=== PATIENT | female | born 1990 | race American Indian/Alaskan Native ===

== ENCOUNTER 2019-01-04 23:28 | Emergency (ER) | payer OTHER ==
[2019-01-04 23:33] VITALS: BP 111/45
[2019-01-05 00:58] LABS: Bilirubin,Urine NEG (Negative); Blood,Urine SM (Negative); Color,Urine Amber (Yellow)
[2019-01-05 00:59] LABS: HCG Qualitative,Urine Negative (Negative)
[2019-01-05] MEDS ORDERED: TYLENOL PO ONE (02:11)
[2019-01-05] MEDS ORDERED: BACTRIM DS PO ONE (02:11)
[2019-01-05] MEDS ORDERED: PYRIDIUM PO ONE (02:11)
--- NOTE | 2019-01-05 02:58 | Emergency Department Report ---
ED Female HPI - General Chief complaint: Urogenital-Female Stated complaint: VAGINAL PAIN/POSS UTI Source: patient Mode of arrival: Ambulatory Limitations: No Limitations - History of Present Illness Initial comments: Patient is a nulliparous 28-year-old female with no past medical history presents to the ED with complaint of acute onset persistent dysuria, urinary frequency and urgency, low back pain and nausea for the last 3 days. Patient denies vaginal bleeding, vaginal discharge, abdominal pain, vomiting, dizziness, headache, fever and chills, chest pain, shortness of breath, or sore throat and cough and sore throat. MD Complaint: dysuria, other (low back pain) -: Sudden, days(s) (3) Location: suprapubic Radiation: non-radiating Severity: moderate Severity scale (0 -10): 5 Quality: sharp, burning, aching Consistency: constant Improves with: none Worsens with: urination Are you Now?: No Last Menstrual Period: 12/26/18 EDC: 10/02/19 Associated Symptoms: nausea/vomiting, loss of appetite, dysuria. denies: vaginal discharge, vaginal bleeding, abdominal pain, fever/chills, headaches, hematuria, rash, seizure, shortness of breath, syncope, weakness - Related Data Sexually active: Yes : 0 Para: 0 A: 0 Previous Rx's Medication Instructions Recorded Last Taken Type Fluconazole [Diflucan TAB] 150 mg PO ONCE #2 tablet 01/05/19 Unknown Rx Ibuprofen [Motrin] 600 mg PO Q8H PRN #20 tablet 01/05/19 Unknown Rx Ondansetron [Zofran Odt] 4 mg PO Q6HR PRN #15 tab.rapdis 01/05/19 Unknown Rx Phenazopyridine [Pyridium] 200 mg PO Q8H #21 tab 01/05/19 Unknown Rx Sulfamethoxazole/Trimethoprim 1 each PO Q12H #20 tablet 01/05/19 Unknown Rx [Bactrim DS TAB] Allergies Allergy/AdvReac Type Severity Reaction Status Date / Time No Known Allergies Allergy Verified 01/04/19 23:30 ED Review of Systems ROS: Stated complaint: VAGINAL PAIN/POSS UTI Other details as noted in HPI Constitutional: denies: chills, fever Eyes: denies: eye pain, eye discharge, vision change ENT: denies: ear pain, throat pain Respiratory: denies: cough, shortness of breath, wheezing Cardiovascular: denies: chest pain, palpitations Endocrine: no symptoms reported Gastrointestinal: nausea. denies: abdominal pain, diarrhea Genitourinary: urgency, dysuria, frequency. denies: discharge Musculoskeletal: back pain. denies: joint swelling, arthralgia Skin: denies: rash, lesions Neurological: denies: headache, weakness, paresthesias Psychiatric: denies: anxiety, depression Hematological/Lymphatic: denies: easy bleeding, easy bruising ED Past Medical Hx - Past Medical History Previous Medical History?: No - Surgical History Past Surgical History?: No - Social History Smoking Status: Never Smoker Substance Use Type: None - Medications Home Medications: Home Medications Medication Instructions Recorded Confirmed Last Taken Type Fluconazole [Diflucan TAB] 150 mg PO ONCE #2 tablet 01/05/19 Unknown Rx Ibuprofen [Motrin] 600 mg PO Q8H PRN #20 tablet 01/05/19 Unknown Rx Ondansetron [Zofran Odt] 4 mg PO Q6HR PRN #15 tab.rapdis 01/05/19 Unknown Rx Phenazopyridine [Pyridium] 200 mg PO Q8H #21 tab 01/05/19 Unknown Rx Sulfamethoxazole/Trimethoprim 1 each PO Q12H #20 tablet 01/05/19 Unknown Rx [Bactrim DS TAB] ED Physical Exam - General Limitations: No Limitations General appearance: alert, in no apparent distress - Head Head exam: Present: atraumatic, normocephalic, normal inspection - Eye Eye exam: Present: normal appearance, PERRL, EOMI Pupils: Present: normal accommodation - ENT ENT exam: Present: normal exam, normal orophraynx, mucous membranes moist, TM's normal bilaterally, normal external ear exam - Neck Neck exam: Present: normal inspection, full ROM - Respiratory Respiratory exam: Present: normal lung sounds bilaterally. Absent: respiratory distress, wheezes, rales, rhonchi, chest wall tenderness, accessory muscle use, prolonged expiratory - Cardiovascular Cardiovascular Exam: Present: regular rate, normal rhythm, normal heart sounds. Absent: systolic murmur, diastolic murmur, rubs, gallop - GI/Abdominal GI/Abdominal exam: Present: soft, normal bowel sounds. Absent: tenderness, guarding, rebound, hyperactive bowel sounds, hypoactive bowel sounds - Bi-manual exam: Present: other (Deferred, patient declined) - Extremities Exam Extremities exam: Present: normal inspection, full ROM, normal capillary refill - Back Exam Back exam: Present: normal inspection, full ROM. Absent: tenderness, CVA tenderness (R), CVA tenderness (L), muscle spasm, paraspinal tenderness, vertebral tenderness - Neurological Exam Neurological exam: Present: alert, oriented X3, CN II-XII intact, normal gait, reflexes normal - Psychiatric Psychiatric exam: Present: normal affect, normal mood - Skin Skin exam: Present: warm, dry, intact, normal color. Absent: rash ED Course Vital Signs 01/04/19 01/04/19 01/05/19 23:32 23:41 02:46 Temperature 98.4 F 98.2 F Pulse Rate 78 73 Respiratory 16 16 16 Rate Blood Pressure 111/45 111/45 O2 Sat by Pulse 99 100 Oximetry - Reevaluation(s) Reevaluation #1: 01/05/19 03:04 This is a 28-year-old female who presented to the ED with dysuria and urinary frequency and urgency for 3 days. In the ED, patient is alert and oriented times 3 and is not in distress. Urinalysis shows significant urinary tract infection. Patient was initially treated in the ED with oral antibiotics and pain medications, and was discharged home on antibiotics, antiemetics and pain medications and advised to follow-up with her [employer]NAGER physician or primary care physician in 5-7 days for reevaluation or return to the ED immediately if symptoms get worse. ED Medical Decision Making - Medical Decision Making This is a 28-year-old female who presented to the ED with dysuria and urinary frequency and urgency for 3 days. In the ED, patient is alert and oriented times 3 and is not in distress. Urinalysis shows significant urinary tract infection. 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 ED Disposition Clinical Impression: Acute urinary tract infection, Dysuria Disposition: TO HOME OR SELFCARE Is pt being admited?: No Does the pt Need Aspirin: No Condition: Stable Instructions: Urinary Tract Infection in Women (ED), Dysuria (ED) Additional Instructions: Take medications with food, drink plenty of fluids and follow up with your FACILITY MANAGER physician or primary care physician in 7-10 days for reevaluation. Return to the ED immediately if symptoms get worse. Prescriptions: Sulfamethoxazole/Trimethoprim [Bactrim DS TAB] 1 each PO Q12H #20 tablet Fluconazole [Diflucan TAB] 150 mg PO ONCE #2 tablet Ibuprofen [Motrin] 600 mg PO Q8H PRN #20 tablet PRN Reason: Pain Phenazopyridine [Pyridium] 200 mg PO Q8H #21 tab Ondansetron [Zofran Odt] 4 mg PO Q6HR PRN #15 tab.rapdis PRN Reason: Nausea [facility] [Primary Care Provider] - 3-5 Days Time of Disposition: 02:55 Print Language: FRENCH
== END 2019-01-05 03:28 | disposition home or self-care (01) ==
LOC: ED 23:28
DX: N39.0 Urinary tract infection, site not specified (principal)
CPT/HCPCS: 81001; 81025; 87086

== ENCOUNTER 2019-02-05 12:36 | Emergency (ER) | payer OTHER ==
[2019-02-05 12:46] VITALS: BP 109/59
--- NOTE | 2019-02-05 12:54 | Event Note ---
ED Screening Note Date of service: 02/05/19 Time: 12:51 ED Screening Note: This is a 28 y.o. F. that presents to the ER with vaginal discharge and vaginal pruritus for 1 week. Recently completed antibiotics 1 week ago for UTI. This initial assessment/diagnostic orders/clinical plan/treatment(s) is/are subject to change based on patients health status, clinical progression and re- assessment by fellow clinical providers in the ED. Further treatment and workup at subsequent clinical providers discretion. Patient/guardian urged not to elope from the ED as their condition may be serious if not clinically assessed and managed. Initial orders include: UA Pelvic exam
[2019-02-05 13:21] LABS: Bacteria,Urine 1+ /HPF (Negative); Bilirubin,Urine NEG (Negative); Blood,Urine NEG (Negative); Color,Urine Yellow (Yellow); Mucus,Urine 1+ /HPF; Protein,Urine <15 mg/dL mg/dL (Negative); Urobilinogen,Urine < 2.0 mg/dL (<2.0)
--- NOTE | 2019-02-05 13:23 | Emergency Department Report ---
ED Female HPI - General Chief complaint: Urogenital-Female Stated complaint: VAGINAL DISCHARGE Time Seen by Provider: 02/05/19 12:51 Source: patient Mode of arrival: Ambulatory Limitations: No Limitations - History of Present Illness Initial comments: Bethany is a 28-year-old female who presents with vaginal discharge and vaginal itching for one month. She was evaluated earlier last month. She was treated UTI. Vaginal discharge continues. She denies pelvic pain. Denies fever. Denies abdominal pain. Denies vomiting. Yellow thin vaginal discharge. MD Complaint: vaginal discharge -: Gradual, month(s) (1) Location: labia Severity: mild Quality: other (vaginal itching) Consistency: constant Improves with: none Worsens with: none Associated Symptoms: vaginal discharge - Related Data Previous Rx's Medication Instructions Recorded Last Taken Type Fluconazole [Diflucan TAB] 150 mg PO ONCE #2 tablet 01/05/19 Unknown Rx Ibuprofen [Motrin] 600 mg PO Q8H PRN #20 tablet 01/05/19 Unknown Rx Ondansetron [Zofran Odt] 4 mg PO Q6HR PRN #15 tab.rapdis 01/05/19 Unknown Rx Phenazopyridine [Pyridium] 200 mg PO Q8H #21 tab 01/05/19 Unknown Rx Sulfamethoxazole/Trimethoprim 1 each PO Q12H #20 tablet 01/05/19 Unknown Rx [Bactrim DS TAB] Fluconazole [Diflucan TAB] 150 mg PO ONCE #1 tablet 02/05/19 Unknown Rx metroNIDAZOLE [Flagyl TAB] 500 mg PO Q12HR 7 Days #14 tab 02/05/19 Unknown Rx Allergies Allergy/AdvReac Type Severity Reaction Status Date / Time No Known Allergies Allergy Verified 01/04/19 23:30 ED Review of Systems ROS: Stated complaint: VAGINAL DISCHARGE Other details as noted in HPI Constitutional: denies: fever, malaise Gastrointestinal: denies: abdominal pain, nausea, vomiting Genitourinary: discharge. denies: urgency, dysuria, frequency, hematuria Skin: denies: rash, lesions ED Past Medical Hx - Past Medical History Previous Medical History?: No - Surgical History Past Surgical History?: No - Social History Smoking Status: Never Smoker - Medications Home Medications: Home Medications Medication Instructions Recorded Confirmed Last Taken Type Fluconazole [Diflucan TAB] 150 mg PO ONCE #2 tablet 01/05/19 Unknown Rx Ibuprofen [Motrin] 600 mg PO Q8H PRN #20 tablet 01/05/19 Unknown Rx Ondansetron [Zofran Odt] 4 mg PO Q6HR PRN #15 tab.rapdis 01/05/19 Unknown Rx Phenazopyridine [Pyridium] 200 mg PO Q8H #21 tab 01/05/19 Unknown Rx Sulfamethoxazole/Trimethoprim 1 each PO Q12H #20 tablet 01/05/19 Unknown Rx [Bactrim DS TAB] Fluconazole [Diflucan TAB] 150 mg PO ONCE #1 tablet 02/05/19 Unknown Rx metroNIDAZOLE [Flagyl TAB] 500 mg PO Q12HR 7 Days #14 tab 02/05/19 Unknown Rx ED Physical Exam - General Limitations: No Limitations General appearance: alert, in no apparent distress, other (appears comfortable. Appears well.) - Head Head exam: Present: atraumatic, normocephalic - Eye Eye exam: Present: normal appearance. Absent: scleral icterus, conjunctival injection - Neurological Exam Neurological exam: Present: alert, oriented X3 - Psychiatric Psychiatric exam: Present: normal affect, normal mood - Skin Skin exam: Present: warm, dry, intact, normal color ED Course Vital Signs 02/05/19 12:42 Temperature 98.2 F Pulse Rate 76 Respiratory 18 Rate Blood Pressure 109/59 [Right] O2 Sat by Pulse 99 Oximetry ED Medical Decision Making - Medical Decision Making Vaginitis: Differential diagnosis includes candidal infection versus bacterial vaginosis. No indication of PID on this presentation. Critical care attestation.: If time is entered above; I have spent that time in minutes in the direct care of this critically ill patient, excluding procedure time. ED Disposition Clinical Impression: Vaginitis Disposition: DC-01 TO HOME OR SELFCARE Is pt being admited?: No Does the pt Need Aspirin: No Condition: Stable Instructions: Vaginitis (ED), Bacterial Vaginosis (ED) Prescriptions: Fluconazole [Diflucan TAB] 150 mg PO ONCE #1 tablet metroNIDAZOLE [Flagyl TAB] 500 mg PO Q12HR 7 Days #14 tab
== END 2019-02-05 13:38 | disposition home or self-care (01) ==
LOC: ED 12:36
DX: N76.0 Acute vaginitis (principal); Z79.899 Other long term (current) drug therapy
CPT/HCPCS: 81001